=== PATIENT | female | born 1960 | race Caucasian/White ===

== ENCOUNTER 2018-10-18 20:50 | Emergency (ER) | payer OTHER ==
[~2018-10-18] VITALS: Ht 152.4 cm; Wt 135.2 kg
[2018-10-18 22:10] VITALS: Ht 152.4 cm; Wt 135.2 kg
[2018-10-19 00:44] VITALS: BP 143/84
== END 2018-10-19 00:38 | disposition home or self-care (01) ==
LOC: ED 20:50
DX: J06.9 Acute upper respiratory infection, unspecified (principal); J20.9 Acute bronchitis, unspecified; I10 Essential (primary) hypertension
CPT/HCPCS: J7613